=== PATIENT | female | born 1960 | race Caucasian/White ===

== ENCOUNTER 2016-05-28 09:55 | Emergency (ER) | payer MEDICARE, MEDICAID ==
[~2016-05-28] VITALS: Ht 144.8 cm; Wt 44.5 kg
[~2016-05-28 09:55] MED LIST: ALBU0.086 NEB; ALBU1AER INH; DILA100C PO; IBUP-232 PO
[2016-05-28 09:56] VITALS: BP 185/92; PULSE 95; RESP 15; TEMP 97.8; O2SAT 98
[2016-05-28] MEDS ORDERED: AUGM875T PO (10:23)
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
[2016-07-14] MEDS ORDERED: ALBUAER3 INH (16:53)
[2016-07-14] MEDS ORDERED: IBUP-232 PO (16:54)
[2016-08-10] MEDS ORDERED: [UNRECOGNIZED DRUG - CODE] (10:30)
[2016-09-15] MEDS ORDERED: IBUP-232 PO (22:44)
[2016-10-17] MEDS ORDERED: DILA100C PO (10:21)
[2016-10-17] MEDS ORDERED: CURIMIS (10:21)
[2016-10-17] MEDS ORDERED: [UNRECOGNIZED DRUG - REMARK] (10:24)
== END 2016-05-28 11:53 | disposition home or self-care (01) ==
LOC: NEPB 09:55
DX: S61.451A Open bite of right hand, initial encounter (principal); W54.0XXA Bitten by dog, initial encounter; R22.0 Localized swelling, mass and lump, head; E78.00 Pure hypercholesterolemia, unspecified; F17.210 Nicotine dependence, cigarettes, uncomplicated; F12.10 Cannabis abuse, uncomplicated
CPT/HCPCS: 99283

== ENCOUNTER 2016-06-24 14:39 | Emergency (ER) | payer MEDICARE, MEDICAID ==
[~2016-06-24] VITALS: Ht 144.8 cm; Wt 44.5 kg
[~2016-06-24 14:39] MED LIST changes: +AUGM875T PO
[2016-06-24 14:42] VITALS: BP 140/66; PULSE 91; RESP 15; TEMP 98.8; O2SAT 92
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
[2016-07-14] MEDS ORDERED: ALBUAER3 INH (16:53)
[2016-07-14] MEDS ORDERED: IBUP-232 PO (16:54)
[2016-08-10] MEDS ORDERED: [UNRECOGNIZED DRUG - CODE] (10:30)
[2016-09-15] MEDS ORDERED: IBUP-232 PO (22:44)
[2016-10-17] MEDS ORDERED: CURIMIS (10:21)
[2016-10-17] MEDS ORDERED: DILA100C PO (10:21)
[2016-10-17] MEDS ORDERED: [UNRECOGNIZED DRUG - REMARK] (10:24)
== END 2016-06-24 17:04 | disposition home or self-care (01) ==
LOC: NEPB 14:39
DX: S80.811A Abrasion, right lower leg, initial encounter (principal); E78.00 Pure hypercholesterolemia, unspecified; F17.200 Nicotine dependence, unspecified, uncomplicated; Z86.2 Personal history of diseases of the blood and blood-forming organs and certain disorders involving the immune mechanism; Z87.09 Personal history of other diseases of the respiratory system; Z86.69 Personal history of other diseases of the nervous system and sense organs; Z87.42 Personal history of other diseases of the female genital tract; V19.3XXA Pedal cyclist (driver) (passenger) injured in unspecified nontraffic accident, initial encounter; Y93.55 Activity, bike riding
CPT/HCPCS: 99282

== ENCOUNTER 2016-07-26 11:06 | Emergency (ER) | payer MEDICARE, MEDICAID ==
[~2016-07-26 11:06] MED LIST changes: -ALBU1AER INH; +ALBUAER3 INH
[2016-07-26 11:12] VITALS: BP 170/104; PULSE 67; RESP 18; TEMP 98.5; O2SAT 95
[2016-07-26 11:15] VITALS: RESP 18; O2SAT 96
[2016-07-26 11:46] LABS: AUTOMATED NEUTROPHIL # 3.7 TH/MM3 (1.8-7.7); BASOPHIL # 0.1 TH/MM3 (0-0.2); EOSINOPHIL % 0.1 % (0.0-4.0); HEMATOCRIT 41.9 % (35.0-46.0); HEMO FLAGS DIFF FINAL; LYMPH % 22.9 % (9.0-44.0); LYMPHOCYTE # 1.3 TH/MM3 (1.0-4.8); MEAN CELL VOLUME 94.6 FL (80.0-100.0); MEAN CORPUSCULAR HEMOGLOBIN 32.4 PG (27.0-34.0); MEAN CORPUSCULAR HGB CONC 34.2 % (32.0-36.0); MONO % 8.8 % (0.0-8.0); NEUT % 67.2 % (16.0-70.0); PLATELET COUNT 159 TH/MM3 (150-450); RED BLOOD COUNT 4.43 MIL/MM3 (4.00-5.30); RED CELL DISTRIBUTION WIDTH 13.1 % (11.6-17.2); WHITE BLOOD COUNT 5.5 TH/MM3 (4.0-11.0)
[2016-07-26 11:49] VITALS: BP 162/111; PULSE 78; RESP 18; O2SAT 96
--- NOTE | 2016-07-26 11:58 | RADRPT ---
EXAM DATE/TIME: 07/26/2016 11:30 [facility] COMPARISON: CT BRAIN W/O CONTRAST, January 15, 2016, 11:34. INDICATIONS : Seizure hit head on concrete today. RADIATION DOSE: 32.65 CTDIvol (mGy) MEDICAL HISTORY : Hypertension. Seizures. SURGICAL HISTORY : Appendectomy. Hysterectomy. ENCOUNTER: Initial ACUITY: 1 day PAIN SCALE: 6/10 LOCATION: cranial TECHNIQUE: Multiple contiguous axial images were obtained of the head. Using automated exposure control and adj ustment of the mA and/or kV according to patient size, radiation dose was kept as low as reasonably a chievable to obtain optimal diagnostic quality images. FINDINGS: CEREBRUM: The ventricles are normal for age. No evidence of midline shift, mass lesion, hemorrhage or acute in farction. No extra-axial fluid collections are seen. POSTERIOR FOSSA: The cerebellum and brainstem are intact. The 4th ventricle is midline. The cerebellopontine angle i s unremarkable. There continues to be some expansion of the extra-axial spaces in the posterior fossa around the cerebellum. EXTRACRANIAL: The visualized portion of the orbits is intact. There is soft tissue injury over the left parietal sc alp. SKULL: The calvaria is intact. No evidence of skull fracture. CONCLUSION: 1. No acute intracranial abnormalities seen. 2. Persistent expansion of the extra axial spaces in the posterior fossa which could suggest some cer ebellar atrophy. 3. Left parietal scalp injury. Rolf Tijerina MD on July 26, 2016 at 11:54 Board Certified Radiologist. This report was verified electronically.
[2016-07-26 12:01] LABS: APTT (PATIENT) 26.2 SEC (24.3-30.1); INTERNATIONAL NORMALIZED RATIO 0.9 RATIO; PROTHROMBIN TIME - PATIENT 9.9 SEC (9.8-11.6)
[2016-07-26 12:12] LABS: ALT (GPT) 29 U/L (10-53); ANION GAP 6 MEQ/L (5-15); AST (GOT) 15 U/L (15-37); BICARBONATE 31.1 MEQ/L (21.0-32.0); BLOOD UREA NITROGEN 18 MG/DL (7-18); CHLORIDE 104 MEQ/L (98-107); GLOMERULAR FILTRATION RATE 91 ML/MIN (>89); POTASSIUM 4.6 MEQ/L (3.5-5.1); SODIUM (NA) 141 MEQ/L (136-145)
[2016-07-26 12:15] LABS: ALKALINE PHOSPHATASE 112 U/L (45-117); TOTAL BILIRUBIN ADULT 0.3 MG/DL (0.2-1.0)
--- NOTE | 2016-07-26 12:44 | PD ---
HPI Chief Complaint: Seizure Time Seen by Provider: 11:10 Travel History International Travel<30 days: No Contact w/Intl Traveler<30days: No Traveled to known affect area: No History of Present Illness HPI 56-year-old female in by EMS after a seizure episode. Patient has history of seizure and on Dilantin. Patient a that she has been taking Dilantin as directed. Patient denies any recent injury. Patient denies any headache. Patient denies any chest pain or shortness of breath. Patient has history of chronic back pain is not new. Patient denies any focal weakness or numbness of the extremity. Patient complained of the lump in the back the head with pain. Patient fell backward hit her head during seizure episode this morning. PFSH Past Medical History Hx Anticoagulant Therapy: No Blood Disorders: Yes ([facility] [place]. AGE 20) Cardiovascular Problems: No High Cholesterol: Yes Chemotherapy: No Cerebrovascular Accident: No Diabetes: No Respiratory: Yes (tracheostomy) Seizures: Yes ?: Unknown Ovarian Cysts: Yes (RIGHT OVARY) Past Surgical History Appendectomy: Yes (AGE 7) Hysterectomy: Yes Other Surgery: Yes (TRACH AGE 20, RT BREAST AGE 29.VULVA DISPLASIA 05/10/07) Social History Alcohol Use: Yes (OCCASIONALLY) Tobacco Use: Yes (1 PPD) Substance Use: Yes (MARIJUANA) Allergies-Medications (Allergen,Severity, Reaction): Coded Allergies: Cat Dander (Verified Allergy, Mild, 06/24/16) Dog Dander (Verified Allergy, Mild, 06/24/16) Dust (Verified Allergy, Mild, 06/24/16) Brandon Grass (Verified Allergy, Mild, 06/24/16) Molds and Smuts (Verified Allergy, Mild, 06/24/16) Uncoded Allergies: paper tape (Allergy, Mild, Rash, 02/20/14) Reported Meds & Prescriptions Reported Meds & Active Scripts Active Ibuprofen 600 Mg Tab 600 Mg PO Q8HR PRN Proair Hfa 8.5 GM Inh (Albuterol Sulfate) 90 Mcg/Act Aer 2 Puff INH Q4-6H PRN 108 mcg/actuation Augmentin (Amoxicillin-Clavulanate) 875-125 mg Tab 875 Mg PO BID 10 Days not for use in CrCl <30 ml/min. Dilantin (Phenytoin Extended) 100 Mg Cap 100 Mg PO HS Dilantin (Phenytoin Extended) 100 Mg Cap 100 Mg PO DAILY@0600 Proventil Ud 0.083% (2.5 Mg/3 Ml) (Albuterol Sulfate) 2.5 Mg/3 Ml Inha 2.5 Mg NEB Q4HR NEB Review of Systems General / Constitutional: No: Fever Eyes: No: Visual changes HENT: No: Headaches Cardiovascular: No: Chest Pain or Discomfort Respiratory: No: Shortness of Breath Gastrointestinal: No: Abdominal Pain Genitourinary: No: Dysuria Musculoskeletal: No: Pain Skin: No Rash Neurologic: No: Weakness Psychiatric: No: Depression Endocrine: No: Polydipsia Hematologic/Lymphatic: No: Easy Bruising Physical Exam Narrative GENERAL: Well-nourished, well-developed patient. SKIN: Warm and dry. HEAD: Normocephalic. Patient has small soft tissue swelling tenderness occipital area of the scalp. EYES: No scleral icterus. No injection or drainage. NECK: Supple, trachea midline. No JVD or lymphadenopathy. CARDIOVASCULAR: Regular rate and rhythm without murmurs, gallops, or rubs. RESPIRATORY: Breath sounds equal bilaterally. No accessory muscle use. GASTROINTESTINAL: Abdomen soft, non-tender, nondistended. MUSCULOSKELETAL: No cyanosis, or edema. BACK: Nontender without obvious deformity. No CVA tenderness. Neurologic exam: Patient is awake alert oriented 3. No obvious focal neurological deficit. Data Data Last Documented VS Vital Signs Date Time Temp Pulse Resp B/P Pulse Ox O2 Delivery O2 Flow Rate FiO2 07/26/16 11:49 78 18 162/111 96 Room Air 07/26/16 11:12 98.5 Orders Complete Blood Count With Diff (07/26/16 11:10) Comprehensive Metabolic Panel (07/26/16 11:10) Prothrombin Time / Inr (Pt) (07/26/16 11:10) Act Partial Throm Time (Ptt) (07/26/16 11:10) Phenytoin (Dilantin) (07/26/16 11:10) Iv Access Insert/Monitor (07/26/16 11:10) Ecg Monitoring (07/26/16 11:10) Oximetry (07/26/16 11:10) Ct Brain W/O Iv Contrast(Rout) (07/26/16 11:12) Labs Laboratory Tests Test 07/26/16 11:23 White Blood Count 5.5 TH/MM3 Red Blood Count 4.43 MIL/MM3 Hemoglobin 14.4 GM/DL Hematocrit 41.9 % Mean Corpuscular Volume 94.6 FL Mean Corpuscular Hemoglobin 32.4 PG Mean Corpuscular Hemoglobin 34.2 % Concent Red Cell Distribution Width 13.1 % Platelet Count 159 TH/MM3 Mean Platelet Volume 8.8 FL Neutrophils (%) (Auto) 67.2 % Lymphocytes (%) (Auto) 22.9 % Monocytes (%) (Auto) 8.8 % Eosinophils (%) (Auto) 0.1 % Basophils (%) (Auto) 1.0 % Neutrophils # (Auto) 3.7 TH/MM3 Lymphocytes # (Auto) 1.3 TH/MM3 Monocytes # (Auto) 0.5 TH/MM3 Eosinophils # (Auto) 0.0 TH/MM3 Basophils # (Auto) 0.1 TH/MM3 CBC Comment DIFF FINAL Differential Comment Prothrombin Time 9.9 SEC Prothromb Time International 0.9 RATIO Ratio Activated Partial 26.2 SEC Thromboplast Time Sodium Level 141 MEQ/L Potassium Level 4.6 MEQ/L Chloride Level 104 MEQ/L Carbon Dioxide Level 31.1 MEQ/L Anion Gap 6 MEQ/L Blood Urea Nitrogen 18 MG/DL Creatinine 0.67 MG/DL Estimat Glomerular Filtration 91 ML/MIN Rate Random Glucose 82 MG/DL Calcium Level 8.6 MG/DL Total Bilirubin 0.3 MG/DL Aspartate Amino Transf 15 U/L (AST/SGOT) Alanine Aminotransferase 29 U/L (ALT/SGPT) Alkaline Phosphatase 112 U/L Total Protein 7.5 GM/DL Albumin 3.5 GM/DL Phenytoin (Dilantin) Level 0.8 MCG/ML [facility] Medical Decision Making Medical Screen Exam Complete: Yes Emergency Medical Condition: Yes Interpretation(s) 12:[address] scan of the brain showed chronic changes. No acute intracranial process. Scalp soft tissue swelling. Dilantin 0.8. Differential Diagnosis Differential diagnosis including breakthrough seizure, subtherapeutic level of medication, electrolyte abnormality. Narrative Course 56-year-old female with seizure. History of seizure disorder. On Dilantin. Dilantin level subtherapeutic. Fosphenytoin 1 g IV given now. Diagnosis Primary Impression: Seizure disorder Additional Impression: Closed head injury Qualified Code: S09.90XA - Closed head injury, initial encounter Patient Instructions: General Instructions Additional Instructions: Advised patient to continue with Dilantin. Advised patient to follow with personal physician for level check and Dilantin adjustment. Head trauma instructions given. Med/Other Pt SpecificInfo: No Change to Meds Disposition: 01 DISCHARGE HOME Condition: Stable Anthony Freeman MD Jul 26, 2016 12:43
[2016-07-26] MEDS ORDERED: FOSPHENYTOIN INJ 1,000 MGPE in SODIUM CHLORIDE 0.9% INJ 50 ML IV ONE (12:45)
[2016-07-26 14:16] VITALS: BP 146/78; TEMP 98.1
[2016-07-27] MEDS ORDERED: DILA100C PO (15:14)
[2016-07-27] MEDS ORDERED: [UNRECOGNIZED DRUG - CODE] (15:53)
[2016-08-10] MEDS ORDERED: [UNRECOGNIZED DRUG - CODE] (10:30)
[2016-09-15] MEDS ORDERED: IBUP-232 PO (22:44)
[2016-10-17] MEDS ORDERED: DILA100C PO (10:21)
[2016-10-17] MEDS ORDERED: CURIMIS (10:21)
[2016-10-17] MEDS ORDERED: [UNRECOGNIZED DRUG - REMARK] (10:24)
== END 2016-07-26 14:00 | disposition home or self-care (01) ==
LOC: NEPA 11:06
DX: G40.909 Epilepsy, unspecified, not intractable, without status epilepticus (principal); S09.90XA Unspecified injury of head, initial encounter; W18.39XA Other fall on same level, initial encounter; G89.29 Other chronic pain; M54.9 Dorsalgia, unspecified; E78.00 Pure hypercholesterolemia, unspecified; F17.210 Nicotine dependence, cigarettes, uncomplicated
CPT/HCPCS: 70450; 80053; 80185; 85025; 85610; 85730; 99284; Q2009

== ENCOUNTER 2016-07-26 14:40 | Observation (INO) | payer MEDICARE, MEDICAID, OTHER ==
[~2016-07-26] VITALS: Ht 160 cm; Wt 65.0 kg
[2016-07-26 14:43] VITALS: BP 168/74; PULSE 94; RESP 20; TEMP 97.7; O2SAT 95
[2016-07-26 16:23] VITALS: BP 173/81; PULSE 78; RESP 24; O2SAT 98
[2016-07-26 16:30] VITALS: BP_SYST 131; BP_SYST 141; BP_SYST 155; BP_DIAS 78; BP_DIAS 86; BP_DIAS 93; RESP 24
[2016-07-26 16:58] LABS: BICARBONATE 31.8 MEQ/L (21.0-32.0); POTASSIUM 4.2 MEQ/L (3.5-5.1)
[2016-07-26 17:40] VITALS: BP 128/71; PULSE 79; RESP 16; O2SAT 100
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
--- NOTE | 2016-07-26 18:41 | PD ---
Physical Exam Narrative Received sign out from previous team to consult neuro and reevaluate. 56yo F with PMH of seizure on dilantin 100mg BID and s/p trach 37 years ago presents to the ED with dizziness. Pt was initially seen this morning with c/o seizure and had dilantin level of 0.8 at the time. Pt was given 1gm of fosphenytoin and discharged. Repeat dilantin level on her second ED visit is 30.6. Discussed with neurologist Dr. Lopez and he recommended to hold her dilantin and repeat dilantin level tomorrow. Stated that pt can be observed overnight and if dilantin level is normal tomorrow, can follow up as outpatient. Discussed with resident physician and admitted to Dr. Hammonds. Data Data Last Documented VS Vital Signs Date Time Temp Pulse Resp B/P Pulse Ox O2 Delivery O2 Flow Rate FiO2 07/26/16 17:40 79 16 128/71 100 Room Air 07/26/16 14:43 97.7 Orders Basic Metabolic Panel (Bmp) (07/26/16 16:07) Phenytoin (Dilantin) (07/26/16 16:07) Iv Access Insert/Monitor (07/26/16 16:07) Ecg Monitoring (07/26/16 16:07) Oximetry (07/26/16 16:07) Orthostatic Vital Signs (07/26/16 16:08) Labs Laboratory Tests Test 07/26/16 16:19 Sodium Level 139 MEQ/L Potassium Level 4.2 MEQ/L Chloride Level 101 MEQ/L Carbon Dioxide Level 31.8 MEQ/L Anion Gap 6 MEQ/L Blood Urea Nitrogen 15 MG/DL Creatinine 0.71 MG/DL Estimat Glomerular Filtration 85 ML/MIN Rate Random Glucose 84 MG/DL Calcium Level 8.7 MG/DL Phenytoin (Dilantin) Level 30.6 MCG/ML [facility] Supervised Visit with BRANDO: No Diagnosis Primary Impression: Dilantin toxicity Qualified Code: T42.0X1A - Dilantin toxicity, accidental or unintentional, initial encounter Admitting Information Admitting Physician Requests: Observation Vilma Kirkpatrick DO Jul 26, 2016 18:41
[2016-07-26] MEDS ORDERED: ONDANSETRON HCL 4 MG/2 ML VIAL IV PRN (19:00)
[2016-07-26] MEDS ORDERED: SODIUM CHLORIDE 0.9% FLUSH 5 ML FLUSH FLUSH PRN (19:00)
[2016-07-26] MEDS ORDERED: NALOXONE HCL 0.4 MG/ML AMP IV PRN (19:00)
[2016-07-26] MEDS ORDERED: RESP: ALBUTEROL 2.5 MG/3 ML NEB (PRN) NEB (19:30)
[2016-07-26] MEDS ORDERED: LORazepam 2 MG/ML VIAL IV PUSH PRN (19:30)
[2016-07-26] MEDS ORDERED: ACETAMINOPHEN 325 MG TAB PO PRN (19:45)
[2016-07-26 20:41] VITALS: BP 104/76; PULSE 80; RESP 18; TEMP 98.4; O2SAT 97
[2016-07-26] MEDS: SODIUM CHLORIDE 0.9% FLUSH 5 ML FLUSH FLUSH SCH (21:00)
[2016-07-26 22:10] VITALS: O2SAT 95
[2016-07-27 04:28] VITALS: BP 106/74; PULSE 80; RESP 18; TEMP 97.9; O2SAT 98
[2016-07-27 06:26] LABS: ALT (GPT) 24 U/L (10-53); ANION GAP 8 MEQ/L (5-15); AST (GOT) 13 U/L (15-37); BICARBONATE 27.3 MEQ/L (21.0-32.0); BLOOD UREA NITROGEN 17 MG/DL (7-18); CHLORIDE 105 MEQ/L (98-107); GLOMERULAR FILTRATION RATE 82 ML/MIN (>89); POTASSIUM 4.2 MEQ/L (3.5-5.1); SODIUM (NA) 140 MEQ/L (136-145)
[2016-07-27 06:29] LABS: ALKALINE PHOSPHATASE 92 U/L (45-117); TOTAL BILIRUBIN ADULT 0.2 MG/DL (0.2-1.0)
[2016-07-27 07:28] VITALS: BP 195/99; PULSE 73; RESP 20; TEMP 96.2; O2SAT 93
[2016-07-27 08:04] VITALS: BP 138/86
[2016-07-27 09:24] VITALS: O2SAT 98
[2016-07-27] MEDS: SODIUM CHLORIDE 0.9% FLUSH 5 ML FLUSH FLUSH SCH (10:59)
--- NOTE | 2016-07-27 11:16 | HHI.FPPN ---
Subjective Remarks Pt. seen, examined and discussed with the medicine team. This is a 56 yo female who has seizure disorder on Dilantin. She Has a trach from history of [place] Encephalitis >30 years ago which she reports was from a mosquito bite. She has had a trach since that time and has managed very well, doing her own trach care. She was seen in ED 2 days ago, and was apparently given dilantin because her level was low, but subsequently pt. was unable to ambulate and reported seizure activity and striking her head which was not witnessed prior to returning to the ED. She experienced some dizziness , and was found to have a significantly elevated dilantin level. This a.m. she feels back to her baseline and would like to be discharged. Requests a trach kit so she can change out her current trach which she has had for 4 years. However, this is apparently functioning well. She lives with a friend who has transportation and will pick her up. Her primary care doctor is Dr. Xiomy Souza. See H&P for this admission for additional historical details, including past, family and social history, and ROS. Objective Vitals Vital Signs Date Time Temp Pulse Resp B/P Pulse Ox O2 Delivery O2 Flow Rate FiO2 07/27/16 08:04 138/86 07/27/16 07:28 96.2 73 20 195/99 93 07/27/16 04:28 97.9 80 18 106/74 98 07/26/16 22:10 95 21 07/26/16 20:41 98.4 80 18 104/76 97 07/26/16 17:40 79 16 128/71 100 Room Air 07/26/16 16:30 80 24 141/93 84 24 155/86 80 131/78 07/26/16 16:23 78 24 173/81 98 Room Air 07/26/16 14:43 97.7 94 20 168/74 95 Result Diagram: 07/27/16 0501 Other Results Laboratory Tests Test 07/26/16 07/27/16 16:19 05:01 Sodium Level 139 MEQ/L 140 MEQ/L Potassium Level 4.2 MEQ/L 4.2 MEQ/L Chloride Level 101 MEQ/L 105 MEQ/L Carbon Dioxide Level 31.8 MEQ/L 27.3 MEQ/L Anion Gap 6 MEQ/L 8 MEQ/L Blood Urea Nitrogen 15 MG/DL 17 MG/DL Creatinine 0.71 MG/DL 0.73 MG/DL Estimat Glomerular Filtration 85 ML/MIN 82 ML/MIN Rate Random Glucose 84 MG/DL 82 MG/DL Calcium Level 8.7 MG/DL 8.3 MG/DL Phenytoin (Dilantin) Level 30.6 MCG/ML 20.4 MCG/ML Total Bilirubin 0.2 MG/DL Aspartate Amino Transf 13 U/L (AST/SGOT) Alanine Aminotransferase 24 U/L (ALT/SGPT) Alkaline Phosphatase 92 U/L Total Protein 6.3 GM/DL Albumin 3.1 GM/DL Objective Remarks O. CONSTITUTIONAL/GEN: normally nourished, in NAD. EYES: conjunctiva normal, PERRLA, EOMI. NECK: Trach tube in place, functioning well. LUNGS: clear A-P, respiratory effort is normal. CARDIOVASCULAR: RR without murmur or gallop. No significant edema. GI/ABD: soft without masses, without organomegaly. NEURO: No focal deficits. SKIN: very frias, evidence of sun damage, no rashes noted. HEME/LYMPH: no bruising, petechia or significant adenopathy MUSC: back is normal in appearance. PSYCH/MENTAL STATUS: Alert and oriented x 3. 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 Attending Attestation Patient seen and examined. Case reviewed and discussed with the resident team. Agree with plan of care as discussed with me and documented in the resident note. Problem List: (1) Dilantin toxicity Status: Acute Plan: - Dilantin level 30.6 on admission - Dr. Kirkpatrick, ED physician, has discussed the case with Dr. Lopez, neurologist who has recommended to hold Dilantin and to repeat a Dilantin level tomorrow - Admit to observation - If Dilantin level normalizes tomorrow, patient may be stable for discharge with follow up - Neuro exam unremarkable at this time - Consult neurology, appreciate recommendations (2) Seizure disorder Status: Acute Plan: - Hold home Dilantin - Ativan 4 mg IV q15m prn seizures > 2 minutes (3) Head injury Status: Acute Plan: - Patient reported she fell on her head during her seizure episode and continues to have pain in her occipital region - Head CT showing no acute intracranial abnormalities; persistent expansion of the extra axial spaces in the posterior fossa which could suggest some cerebellar atrophy - forger helper intact and rest of neuro exam unremarkable - Pain control with Tylenol q4h prn (4) Nutrition, metabolism, and development symptoms Status: Acute Plan: Fluids: per PO Electrolytes: within normal limits Nutrition: regular diet DVT PPX: b/l SCDs, consider chemical anticoagulation if anticipating a longer hospital stay Problem Qualifiers (1) Dilantin toxicity: Qualified Code: T42.0X1A - Dilantin toxicity, accidental or unintentional, initial encounter Linda Hammonds MD Jul 27, 2016 11:16
[2016-07-27 11:26] VITALS: BP 125/72; PULSE 72; RESP 18; TEMP 96.2; O2SAT 95
--- NOTE | 2016-07-27 13:30 | MB ---
cc: LAUREL العليREY DATE OF CONSULTATION: 07/27/2016 REASON FOR CONSULTATION Dilantin toxicity. HISTORY OF PRESENT ILLNESS The patient is a 56-year-old female who yesterday came to the emergency room with history of a seizure. Apparently friends saw her falling to the ground and having seizure activity. She came to the ER and the Dilantin level was 0.8. She was loaded with Dilantin and was discharged but felt very dizzy afterwards and came back and the Dilantin level was 30.6. She was admitted and she is doing well. This morning she is feeling much better. PAST MEDICAL HISTORY She has a history of a seizure disorder, history of [place] encephalitis at age of 19. She had a tracheostomy for 37 years. She says previous to this her last seizure was several months ago. She takes Dilantin 100 mg twice a day. SOCIAL HISTORY She is staying with friends. She is a smoker and does not drink alcohol. NEUROLOGICAL EXAMINATION The neurological exam shows a frail woman but she is alert pleasant, oriented. She has a trach and closes it in order to verbalize. Her speech is actually quite good. Ocular movements and visual gill full. She has good strength with the upper and lower extremities on the bedside exam. Reflexes are present throughout, plantar responses flexor. LABORATORY DATA I looked at the data. Repeat Dilantin level this morning was 20.4. Chemistry with normal sodium, potassium, BUN and creatinine. Blood sugar normal. Calcium 8.7 yesterday and 8.3 today. ASSESSMENT Seizure recurrence yesterday, loaded with Dilantin as the level was essentially unobtainable. She swears she takes Dilantin 100 mg twice a day and apparently follows with a primary care doctor and checks her Dilantin level often. The level yesterday therefore is of a questionable significance but she apparently had a seizure yesterday, was loaded with Dilantin and became toxic later on. This is not unusual to have a Dilantin level this high after loading and she is a small framed woman. As discussed with the RN earlier today, I think we can restart her Dilantin 100 mg twice a day and she can be discharged home as she is back to baseline. She could follow with me as I offered her to do so, but she apparently already follows with a regular doctor for this and should have a Dilantin level in a couple of weeks. If there are additional seizures in the meantime then we will consider follow-up imaging studies. The patient did have a CT brain yesterday after coming to the office initially with the seizure and the study showed no intracranial abnormalities but left scalp injury. Thank you for asking us to assist in her care. Joesph Johnson MD OFC/BT /12:57 PM /1:10 PM
[2016-07-27] MEDS ORDERED: DILA100C PO (15:14)
--- NOTE | 2016-07-27 15:15 | HHI.DCPOC ---
Discharge Care Plan Diagnosis: (1) Dilantin toxicity (2) Seizure disorder Goals to Promote Your Health * To prevent worsening of your condition and complications * To maintain your health at the optimal level Directions to Meet Your Goals Take your medications as prescribed Follow your dietary instruction Follow activity as directed Keep your appointments as scheduled Take your immunizations and boosters as scheduled If your symptoms worsen call your PCP, if no PCP go to Urgent Care Center or Emergency Room Smoking is Dangerous to Your Health. Avoid second hand smoke Call the 24-hour hour crisis hotline for domestic abuse at Geovanny Samuels MD R1 Jul 27, 2016 15:15
[2016-07-27 15:29] VITALS: BP 142/74; PULSE 95; RESP 19; TEMP 95.8; O2SAT 94
[2016-07-27] MEDS ORDERED: [UNRECOGNIZED DRUG - CODE] (15:53)
[2016-08-10] MEDS ORDERED: [UNRECOGNIZED DRUG - CODE] (10:30)
[2016-09-15] MEDS ORDERED: IBUP-232 PO (22:44)
[2016-10-17] MEDS ORDERED: CURIMIS (10:21)
[2016-10-17] MEDS ORDERED: DILA100C PO (10:21)
[2016-10-17] MEDS ORDERED: [UNRECOGNIZED DRUG - REMARK] (10:24)
== END 2016-07-27 18:22 | disposition home or self-care (01) ==
LOC: NEPA 14:40 → NEDA 18:38 → NEPGCP 20:31
PROVIDERS: ADMIT Family Medicine; ATTEND Family Medicine
DX: T42.0X5A Adverse effect of hydantoin derivatives, initial encounter (principal); R42 Dizziness and giddiness; S09.90XA Unspecified injury of head, initial encounter; G40.409 Other generalized epilepsy and epileptic syndromes, not intractable, without status epilepticus; E78.5 Hyperlipidemia, unspecified; Z91.048 Other nonmedicinal substance allergy status; G89.29 Other chronic pain; M54.9 Dorsalgia, unspecified; F17.210 Nicotine dependence, cigarettes, uncomplicated; W18.39XA Other fall on same level, initial encounter
CPT/HCPCS: 70450; 80053; 80185; 85025; 85610; 85730; 97163; 99284; G0378; G8987; G8988; Q2009; 80048

== ENCOUNTER → 2016-08-10 | Outpatient (CLI) | payer MEDICARE, OTHER ==
[~2016-08-10] MED LIST changes: -ALBU0.086 NEB; -AUGM875T PO; +BENZ100 PO; +CURIMIS; +GUAI200T4 PO; +PRED20 PO; +ZITH250T PO; +[UNRECOGNIZED DRUG - CODE]; +[UNRECOGNIZED DRUG - REMARK]
== END ==
LOC: CLAB 10:55
PROVIDERS: ATTEND Family Medicine
DX: G40.909 Epilepsy, unspecified, not intractable, without status epilepticus (principal)
CPT/HCPCS: 36415; 80186

== ENCOUNTER → 2016-10-17 | Outpatient (CLI) | payer MEDICARE, OTHER | LOC: CLAB 10:44 | PROVIDERS: ATTEND Family Medicine | DX: G40.909 Epilepsy, unspecified, not intractable, without status epilepticus (principal) | CPT/HCPCS: 36415; 80185 ==

== ENCOUNTER 2016-11-07 09:24 | Emergency (ER) | payer MEDICAID, MEDICARE, OTHER ==
[~2016-11-07] VITALS: Ht 144.8 cm; Wt 42.0 kg
[~2016-11-07 09:24] MED LIST changes: -BENZ100 PO; -CURIMIS; -GUAI200T4 PO; -PRED20 PO; -ZITH250T PO; -[UNRECOGNIZED DRUG - CODE]
[2016-11-07 09:32] VITALS: BP 137/67; PULSE 96; RESP 16; TEMP 99.6; O2SAT 100
[2016-11-07 09:36] VITALS: BP 137/67; PULSE 92; RESP 16; O2SAT 100
[2016-11-07] MEDS ORDERED: methylPREDNISolone SOD SUCC 125 MG/2 ML VIAL IVP ONE (10:15)
[2016-11-07] MEDS ORDERED: SODIUM CHLORIDE 0.9% FLUSH 10 ML FLUSH IVF PRN (10:15)
[2016-11-07] MEDS ORDERED: SODIUM CHLOR 0.9% 1000 ML INJ 1,000 ML IV ONE (10:15)
--- NOTE | 2016-11-07 10:52 | RADRPT ---
EXAM DATE/TIME: 11/07/2016 10:36 [facility] COMPARISON: No previous studies available for comparison. INDICATIONS : Cough. MEDICAL HISTORY : Chronic obstructive pulmonary disease. Hypercholesterolemia. SURGICAL HISTORY : Tracheostomy ENCOUNTER: Initial ACUITY: 2 days PAIN SCORE: 0/10 LOCATION: Bilateral chest FINDINGS: There is a tracheostomy tube in place. No significant focal pleural or parenchymal opacities are note d. Cardiomediastinal contours are within normal limits. Bony thorax is intact. CONCLUSION: 1. No acute cardiopulmonary disease. Cristhian White MD on November 07, 2016 at 10:49 Board Certified Radiologist. This report was verified electronically.
[2016-11-07] MEDS: RESP: ALBUTEROL 2.5 MG/IPRATROPIUM 0.5 MG NEB (SCH) INH ×2 (10:56→10:57)
[2016-11-07 10:59] LABS: AUTOMATED NEUTROPHIL # 5.4 TH/MM3 (1.8-7.7); BASOPHIL % 0.5 % (0.0-2.0); HEMATOCRIT 38.7 % (35.0-46.0); HEMO FLAGS DIFF FINAL; LYMPHOCYTE # 0.7 TH/MM3 (1.0-4.8); MEAN CELL VOLUME 89.9 FL (80.0-100.0); MEAN CORPUSCULAR HEMOGLOBIN 31.9 PG (27.0-34.0); MEAN CORPUSCULAR HGB CONC 35.5 % (32.0-36.0); MONO % 8.2 % (0.0-8.0); NEUT % 80.3 % (16.0-70.0); PLATELET COUNT 123 TH/MM3 (150-450); RED BLOOD COUNT 4.31 MIL/MM3 (4.00-5.30); RED CELL DISTRIBUTION WIDTH 13.4 % (11.6-17.2); WHITE BLOOD COUNT 6.7 TH/MM3 (4.0-11.0)
[2016-11-07 11:15] LABS: BICARBONATE 27.6 MEQ/L (21.0-32.0); POTASSIUM 3.4 MEQ/L (3.5-5.1)
[2016-11-07] MEDS ORDERED: AZITHROMYCIN 250 MG TAB PO ONE (11:15)
[2016-11-07 11:50] VITALS: BP 177/87; PULSE 92; RESP 16; O2SAT 96
[2016-11-07] MEDS ORDERED: PRED20 PO (12:12)
[2016-11-07] MEDS ORDERED: ALBUAER3 INH (12:12)
[2016-11-07] MEDS ORDERED: POTASSIUM CHLORIDE 10 MEQ CONTROLLED RELEASE TAB PO ONE (12:15)
--- NOTE | 2016-11-07 12:20 | PD ---
HPI Chief Complaint: General Weakness Time Seen by Provider: 09:55 Travel History International Travel<30 days: No Contact w/Intl Traveler<30days: No Traveled to known affect area: No History of Present Illness HPI Patient is a 56-year-old female who presents to emergency room with complaints of cough and congestion for the past few days. Patient reports that when she coughs, her cough has been productive. Patient denies any fevers or chills. Reports that she was seen at [facility] yesterday and had an xray of her chest which was negative for pneumonia. Reports that she was diagnosed with bronchitis and was sent home with a prescription for a Z-Todd and Tessalon Perles. Patient reports that she has not filled her scripts, reports that she is not feeling any better. Patient denies chest pain/sob at this time. No other c/o. Patient is a smoker. PFSH Past Medical History Hx Anticoagulant Therapy: No Asthma: Yes Blood Disorders: Yes ([facility]. AGE 20) Heart Rhythm Problems: No Cancer: No Cardiovascular Problems: Yes High Cholesterol: Yes Chemotherapy: No Chest Pain: No Congestive Heart Failure: No COPD: Yes Cerebrovascular Accident: No Diabetes: No Endocrine: No Genitourinary: No Immune Disorder: No Musculoskeletal: No Neurologic: Yes (seizures ) Psychiatric: No Reproductive: No Respiratory: Yes (COPD) Radiation Therapy: No Seizures: Yes Sleep Apnea: No Thyroid Disease: No Influenza Vaccination: No ?: Not Ovarian Cysts: Yes (RIGHT OVARY) Past Surgical History Appendectomy: Yes (AGE 7) Hysterectomy: Yes Other Surgery: Yes (TRACH AGE 20, RT BREAST AGE 29.VULVA DISPLASIA 05/10/07) Social History Alcohol Use: Yes (OCCASIONALLY) Tobacco Use: Yes (3/4 ppd) Substance Use: Yes (MARIJUANA) Allergies-Medications (Allergen,Severity, Reaction): Coded Allergies: Cat Dander (Verified Allergy, Mild, 11/07/16) Dog Dander (Verified Allergy, Mild, 11/07/16) Dust (Verified Allergy, Mild, 11/07/16) Brandon Grass (Verified Allergy, Mild, 11/07/16) Molds and Smuts (Verified Allergy, Mild, 11/07/16) Uncoded Allergies: paper tape (Allergy, Mild, Rash, 02/20/14) Reported Meds & Prescriptions Reported Meds & Active Scripts Active Proair Hfa 8.5 GM Inh (Albuterol Sulfate) 90 Mcg/Act Aer 2 Puff INH Q4-6H PRN 108 mcg/actuation Prednisone 20 Mg Tab 20 Mg PO BID 5 Days [tracheostomy care] Kit .XX CONTINUOUS Dilantin (Phenytoin Extended) 100 Mg Cap 100 Mg PO BID Ibuprofen 600 Mg Tab 600 Mg PO Q8HR PRN Proair Hfa 8.5 GM Inh (Albuterol Sulfate) 90 Mcg/Act Aer 2 Puff INH Q4-6H PRN 108 mcg/actuation Review of Systems General / Constitutional: No: Fever Eyes: No: Visual changes HENT: No: Headaches Cardiovascular: No: Chest Pain or Discomfort Respiratory: Positive: Cough, Shortness of Breath, Wheezing Gastrointestinal: No: Abdominal Pain Genitourinary: No: Dysuria Musculoskeletal: No: Pain Skin: No Rash Neurologic: No: Weakness Psychiatric: No: Depression Endocrine: No: Polydipsia Hematologic/Lymphatic: No: Easy Bruising Physical Exam Narrative GENERAL: Mild distress SKIN: Focused skin assessment warm/dry. HEAD: Atraumatic. Normocephalic. ENT: No nasal bleeding or discharge. Mucous membranes pink and moist. NECK: Trachea midline. No JVD. CARDIOVASCULAR: Regular rate and rhythm. No murmur appreciated. RESPIRATORY: No accessory muscle use. Patient with scattered wheezing throughout upper and lower lobes of the lungs. GASTROINTESTINAL: Abdomen soft, non-tender, nondistended. Hepatic and splenic margins not palpable. MUSCULOSKELETAL: No obvious deformities. No clubbing. No cyanosis. No edema. NEUROLOGICAL: Awake and alert. No obvious cranial nerve deficits. Motor grossly within normal limits. Normal speech. PSYCHIATRIC: Appropriate mood and affect; insight and judgment normal. Data Data Last Documented VS Vital Signs Date Time Temp Pulse Resp B/P Pulse Ox O2 Delivery O2 Flow Rate FiO2 11/07/16 11:50 92 16 177/87 96 Nasal Cannula 2 11/07/16 09:32 99.6 Orders Complete Blood Count With Diff (11/07/16 10:13) Basic Metabolic Panel (Bmp) (11/07/16 10:13) Iv Access Insert/Monitor (11/07/16 10:13) Ecg Monitoring (11/07/16 10:13) Oximetry (11/07/16 10:13) Chest, Pa & Lat (11/07/16 10:13) Sodium Chloride 0.9% Flush (Ns Flush) (11/07/16 10:15) Methylprednisolone So Succ Inj (Solumedr (11/07/16 10:15) Albuterol-Ipratropium Neb (Duoneb Neb) (11/07/16 10:15) Sodium Chlor 0.9% 1000 Ml Inj (Ns 1000 M (11/07/16 10:15) Phenytoin (Dilantin) (11/07/16 10:13) Azithromycin (Zithromax) (11/07/16 11:15) Potassium Chloride (Kcl) (11/07/16 12:15) Labs Laboratory Tests Test 11/07/16 10:47 White Blood Count 6.7 TH/MM3 Red Blood Count 4.31 MIL/MM3 Hemoglobin 13.7 GM/DL Hematocrit 38.7 % Mean Corpuscular Volume 89.9 FL Mean Corpuscular Hemoglobin 31.9 PG Mean Corpuscular Hemoglobin 35.5 % Concent Red Cell Distribution Width 13.4 % Platelet Count 123 TH/MM3 Mean Platelet Volume 8.6 FL Neutrophils (%) (Auto) 80.3 % Lymphocytes (%) (Auto) 11.0 % Monocytes (%) (Auto) 8.2 % Eosinophils (%) (Auto) 0.0 % Basophils (%) (Auto) 0.5 % Neutrophils # (Auto) 5.4 TH/MM3 Lymphocytes # (Auto) 0.7 TH/MM3 Monocytes # (Auto) 0.6 TH/MM3 Eosinophils # (Auto) 0.0 TH/MM3 Basophils # (Auto) 0.0 TH/MM3 CBC Comment DIFF FINAL Differential Comment Sodium Level 137 MEQ/L Potassium Level 3.4 MEQ/L Chloride Level 102 MEQ/L Carbon Dioxide Level 27.6 MEQ/L Anion Gap 7 MEQ/L Blood Urea Nitrogen 30 MG/DL Creatinine 1.08 MG/DL Estimat Glomerular Filtration 52 ML/MIN Rate Random Glucose 123 MG/DL Calcium Level 8.2 MG/DL Phenytoin (Dilantin) Level 13.6 MCG/ML MDM Medical Decision Making Medical Screen Exam Complete: Yes Emergency Medical Condition: Yes Interpretation(s) Vital Signs Date Time Temp Pulse Resp B/P Pulse Ox O2 Delivery O2 Flow Rate FiO2 11/07/16 11:50 92 16 177/87 96 Nasal Cannula 2 11/07/16 09:36 92 16 137/67 100 Nasal Cannula 2 11/07/16 09:32 99.6 96 16 137 100 Laboratory Tests Test 11/07/16 10:47 White Blood Count 6.7 TH/MM3 (4.0-11.0) Red Blood Count 4.31 MIL/MM3 (4.00-5.30) Hemoglobin 13.7 GM/DL (11.6-15.3) Hematocrit 38.7 % (35.0-46.0) Mean Corpuscular Volume 89.9 FL (80.0-100.0) Mean Corpuscular Hemoglobin 31.9 PG (27.0-34.0) Mean Corpuscular Hemoglobin 35.5 % Concent (32.0-36.0) Red Cell Distribution Width 13.4 % (11.6-17.2) Platelet Count 123 TH/MM3 (150-450) Mean Platelet Volume 8.6 FL (7.0-11.0) Neutrophils (%) (Auto) 80.3 % (16.0-70.0) Lymphocytes (%) (Auto) 11.0 % (9.0-44.0) Monocytes (%) (Auto) 8.2 % (0.0-8.0) Eosinophils (%) (Auto) 0.0 % (0.0-4.0) Basophils (%) (Auto) 0.5 % (0.0-2.0) Neutrophils # (Auto) 5.4 TH/MM3 (1.8-7.7) Lymphocytes # (Auto) 0.7 TH/MM3 (1.0-4.8) Monocytes # (Auto) 0.6 TH/MM3 (0-0.9) Eosinophils # (Auto) 0.0 TH/MM3 (0-0.4) Basophils # (Auto) 0.0 TH/MM3 (0-0.2) CBC Comment DIFF FINAL Differential Comment Sodium Level 137 MEQ/L (136-145) Potassium Level 3.4 MEQ/L (3.5-5.1) Chloride Level 102 MEQ/L (98-107) Carbon Dioxide Level 27.6 MEQ/L (21.0-32.0) Anion Gap 7 MEQ/L (5-15) Blood Urea Nitrogen 30 MG/DL (7-18) Creatinine 1.08 MG/DL (0.50-1.00) Estimat Glomerular Filtration 52 ML/MIN (>89) Rate Random Glucose 123 MG/DL (74-106) Calcium Level 8.2 MG/DL (8.5-10.1) Phenytoin (Dilantin) Level 13.6 MCG/ML (10.0-20.0) Last Impressions Chest X-Ray 11/07/16 1013 Signed Impressions: Service Date/Time: Monday, November 07, 2016 10:36 - CONCLUSION: 1. No acute cardiopulmonary disease. Cristhian White MD Differential Diagnosis acute bronchitis, pneumonia, copd exacerbation Narrative Course Patient is a 56-year-old female who presents to emergency room for re- evaluation of cough/congestion and wheezing. She was seen at an outside hospital last night and was discharged with a prescription for Z-Todd as well as Tessalon Perles. Patient reports that she has not filled her prescription, reports that she is not feeling any better Patient's vital signs are stable. Patient was placed on a continuous pulse ox upon arrival to emergency room. Steroids as well as neb treatment ordered. Vital Signs Date Time Temp Pulse Resp B/P Pulse Ox O2 Delivery O2 Flow Rate FiO2 11/07/16 11:50 92 16 177/87 96 Nasal Cannula 2 11/07/16 09:36 92 16 137/67 100 Nasal Cannula 2 11/07/16 09:32 99.6 96 16 137/67 100 CBC & BMP Diagram 11/07/16 10:47 Last Impressions Chest X-Ray 11/07/16 1013 Signed Impressions: Service Date/Time: Monday, November 07, 2016 10:36 - CONCLUSION: 1. No acute cardiopulmonary disease. Cristhian White MD Patient reevaluated, patient with decreased wheezing on evaluation. Plan to discharge patient with diagnoses of bronchitis. Patient understands needs to fill scripts for her antibiotics. She understands importance of smoking cessation. I will add steroids as well as albuterol HFA to her treatment course. Signs and symptoms of when to return to ER was reviewed with patient in detail. Diagnosis Primary Impression: Bronchitis Patient Instructions: General Instructions Additional Instructions: Please take all medications as prescribed to your at [facility] Return to ER as needed or if symptoms worsen or persist Please follow up with your primary care doctor in 24-48 hours Scripts Albuterol 8.5 GM Inh (Proair Hfa 8.5 GM Inh)90 Mcg/Act Aer2 Puff INH Q4-6H PRN ( SHORTNESS OF BREATH) #1 INHALER Ref 0 108 mcg/actuation Prov:Reina Jim DO 11/07/16 Prednisone 20 Mg Tab20 Mg PO BID 5 Days Ref 0 Prov:Reina Jim DO 11/07/16 Disposition: 01 DISCHARGE HOME Condition: Stable Reina Jim DO Nov 07, 2016 12:19
[2016-11-08] MEDS ORDERED: ZITH250T PO (01:26)
[2016-11-08] MEDS ORDERED: BENZ100 PO (01:26)
[2016-11-08] MEDS ORDERED: GUAI200T4 PO (04:05)
== END 2016-11-07 13:07 | disposition home or self-care (01) ==
LOC: NEPE 09:24
DX: J40 Bronchitis, not specified as acute or chronic (principal); J45.909 Unspecified asthma, uncomplicated; E78.00 Pure hypercholesterolemia, unspecified; J44.9 Chronic obstructive pulmonary disease, unspecified; R56.9 Unspecified convulsions; F17.200 Nicotine dependence, unspecified, uncomplicated; Z79.899 Other long term (current) drug therapy
CPT/HCPCS: 71020; 80048; 80185; 85025; 94640; 94664; 96361; 96374; 99285; J2930; J7030

== ENCOUNTER 2016-11-08 01:13 | Emergency (ER) | payer MEDICARE, OTHER ==
[~2016-11-08] VITALS: Ht 144.8 cm; Wt 45.0 kg
[~2016-11-08 01:13] MED LIST changes: +PRED20 PO
[2016-11-08 01:16] VITALS: PULSE 97; RESP 18; TEMP 99.9; O2SAT 95
[2016-11-08 01:20] VITALS: BP 113/59; PULSE 96; RESP 18; TEMP 99.9; O2SAT 95
[2016-11-08] MEDS ORDERED: BENZ100 PO (01:26)
[2016-11-08] MEDS ORDERED: ZITH250T PO (01:26)
[2016-11-08] MEDS ORDERED: methylPREDNISolone SOD SUCC 125 MG/2 ML VIAL IVP ONE (01:45)
[2016-11-08] MEDS ORDERED: SODIUM CHLORIDE 0.9% FLUSH 10 ML FLUSH IVF PRN (01:45)
[2016-11-08] MEDS ORDERED: ACETAMINOPHEN 325 MG TAB PO ONE (01:45)
[2016-11-08] MEDS ORDERED: AZITHROMYCIN 250 MG TAB PO ONE (01:45)
--- NOTE | 2016-11-08 01:48 | PD ---
HPI Chief Complaint: Cold / Flu Symptoms Time Seen by Provider: 01:29 Travel History International Travel<30 days: No Contact w/Intl Traveler<30days: No Traveled to known affect area: No History of Present Illness HPI The patient is a 56 year old female who presents to the [facility] emergency department with a history of reportedly feeling sick since Monday. The patient reports that she's had yellow nasal discharge, cough productive of yellow to green sputum through her tracheostomy, and intermittent shortness of breath with exertion. The patient reports that she's had a fever with a MAXIMUM TEMPERATURE of 101. The patient was seen in the emergency department at [facility] on November 06 and had a chest x-ray done that was unremarkable, however the patient was given a prescription for Z-Todd and Tessalon Perles. The patient did not get her prescriptions filled. She was not feeling any better and on November 07 she was again evaluated in the emergency department at this facility and was seen by Dr. Jim. Laboratory studies were ordered, chest x-ray was ordered at that time. The chest x-ray showed no acute abnormality. The patient was discharged with instructions to fill the prescription for antibiotic and was also given a prescription for a pro-air inhaler and prednisone. The patient again did not fill any of her prescriptions. The patient arrives by ambulance services. The patient reports having acute onset of shortness of breath that awoke her from sound sleep. The patient reports that she normally sleeps with the inner tubing out of her trach. When she awoke she realized that she had a mucous plug in her tracheostomy. On arrival, the patient's tracheostomy is filled with mucus. This was gently suctioned, cleaned by the respiratory therapist. The patient on arrival after being elbowed to cough up some mucus and receiving a nebulizer treatment by ambulance services reports feeling improved. Her only other complaint has been generalized weakness related to her upper respiratory infection. On Review of systems, the patient denies an neck pain chest pain, abdominal pain, vomiting, diarrhea, urinary symptoms, or other focal neurologic symptoms. 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 Hx Anticoagulant Therapy: No Asthma: Yes Blood Disorders: Yes ([facility]. AGE 20) Heart Rhythm Problems: No Cancer: No Cardiovascular Problems: Yes High Cholesterol: Yes Chemotherapy: No Chest Pain: No Congestive Heart Failure: No COPD: Yes Cerebrovascular Accident: No Diabetes: No Endocrine: No Genitourinary: No Immune Disorder: No Musculoskeletal: No Neurologic: Yes (seizures ) Psychiatric: No Reproductive: No Respiratory: Yes (COPD) Radiation Therapy: No Seizures: Yes Sleep Apnea: No Thyroid Disease: No Ovarian Cysts: Yes (RIGHT OVARY) Past Surgical History Appendectomy: Yes (AGE 7) Hysterectomy: Yes Other Surgery: Yes (TRACH AGE 20, RT BREAST AGE 29.VULVA DISPLASIA 05/10/07) Social History Alcohol Use: Yes (OCCASIONALLY) Tobacco Use: Yes (/ ppd) Substance Use: Yes (MARIJUANA) Allergies-Medications (Allergen,Severity, Reaction): Coded Allergies: Cat Dander (Verified Allergy, Mild, 11/07/16) Dog Dander (Verified Allergy, Mild, 11/07/16) Dust (Verified Allergy, Mild, 11/07/16) Brandon Grass (Verified Allergy, Mild, 11/07/16) Molds and Smuts (Verified Allergy, Mild, 11/07/16) Uncoded Allergies: paper tape (Allergy, Mild, Rash, 02/20/14) Reported Meds & Prescriptions Reported Meds & Active Scripts Active Guaifenesin 200 Mg Tablet 1 Tab PO Q 6HOURS PRN 3 Days Proair Hfa 8.5 GM Inh (Albuterol Sulfate) 90 Mcg/Act Aer 2 Puff INH Q4-6H PRN 108 mcg/actuation Prednisone 20 Mg Tab 20 Mg PO BID 5 Days [tracheostomy care] Kit .XX CONTINUOUS Dilantin (Phenytoin Extended) 100 Mg Cap 100 Mg PO BID Ibuprofen 600 Mg Tab 600 Mg PO Q8HR PRN Proair Hfa 8.5 GM Inh (Albuterol Sulfate) 90 Mcg/Act Aer 2 Puff INH Q4-6H PRN 108 mcg/actuation Reported Tessalon Perles (Benzonatate) 100 Mg Cap 100 Mg PO TID PRN Zithromax (Azithromycin) 250 Mg Tab 250 Mg PO DIRECTED Take 2 tabs (500 mg) on day 1 then 1 tab daily x 4 days. Review of Systems Except as stated in HPI: all other systems reviewed are Neg General / Constitutional: Positive: Fever Eyes: No: Visual changes HENT: No: Headaches Cardiovascular: No: Chest Pain or Discomfort Respiratory: Positive: Cough, Shortness of Breath Gastrointestinal: No: Abdominal Pain Genitourinary: No: Dysuria Musculoskeletal: No: Pain Skin: No Rash Neurologic: Positive: Weakness, No: Focal Abnormalities, Change in Mentation, Slurred Speech, Sensory Disturbance Psychiatric: No: Depression Endocrine: No: Polydipsia Hematologic/Lymphatic: No: Easy Bruising Physical Exam Narrative General: The patient is a well-developed, thin appearing female, in no acute distress. Head and Neck exam: Head is normocephalic atraumatic. Eyes: EOMI, pupils are equal round and reactive to light. Nose: Midline septum with pink mucous membranes Mouth: Dentition unremarkable. Moist mucus membranes. Posterior oropharynx is not erythematous. No tonsillar hypertrophy. Uvula midline. Airway patent. Neck: No palpable lymphadenopathy. No nuchal rigidity. No thyromegaly. The patient has a tracheostomy in place with yellow drainage, mucus noted around it. Cardiovascular: Regular rate and rhythm without murmurs, gallops, or rubs. Lungs: Soft expiratory wheezes are audible in bilateral lung gill, no rhonchi, no crackles. The patient has a frequent cough on examination. No tripoding. No paroxysmal abdominal breathing. No accessory muscle use. Abdomen: Soft, without tenderness to palpation in all 4 quadrants of the abdomen. No guarding, rebound, or rigidity. Normal bowel sounds are audible. No tenderness on palpation of McBurney's point. Extremities: No clubbing, cyanosis, or edema. 2+ pulses in all 4 extremities. No calf tenderness on palpation. Back: No spinous process tenderness to palpation. No costovertebral angle tenderness to palpation. Neurologic Exam: Grossly nonfocal. Skin Exam: No rash noted. Intact skin that is warm and dry. Data Data Last Documented VS Vital Signs Date Time Temp Pulse Resp B/P Pulse Ox O2 Delivery O2 Flow Rate FiO2 11/08/16 04:25 98 Nasal Cannula 2 11/08/16 01:20 97 18 11/08/16 01:20 99.9 113/59 Orders Azithromycin (Zithromax) (11/08/16 01:45) Acetaminophen (Tylenol) (11/08/16 01:45) Oral Rehydration (11/08/16 01:32) Resp Respiratory Parameters (11/08/16 ) Iv Access Insert/Monitor (11/08/16 01:32) Ecg Monitoring (11/08/16 01:32) Oximetry (11/08/16 01:32) Oxygen Administration (11/08/16 01:32) Sodium Chloride 0.9% Flush (Ns Flush) (11/08/16 01:45) Methylprednisolone So Succ Inj (Solumedr (11/08/16 01:45) Albuterol-Ipratropium Neb (Duoneb Neb) (11/08/16 01:45) MDM Medical Decision Making Medical Screen Exam Complete: Yes Emergency Medical Condition: Yes Medical Record Reviewed: Yes Interpretation(s) Vital Signs Date Time Temp Pulse Resp B/P Pulse Ox O2 Delivery O2 Flow Rate FiO2 11/08/16 04:25 98 Nasal Cannula 2 11/08/16 04:25 94 Room Air 11/08/16 01:20 97 18 96 Nasal Cannula 2 11/08/16 01:20 99.9 96 18 113/59 95 Room Air 11/08/16 01:16 99.9 97 18 95 Differential Diagnosis COPD exacerbation, versus bronchitis, versus mucus plugging Narrative Course During the course of the patients emergency department visit, the patients history, examination, and differential diagnosis were reviewed with the patient. The patient had IV access obtained and blood work sent for analysis. The patient's electronic medical record was reviewed. As the patient had laboratory studies and a chest x-ray done within the last 24 hours, this was not repeated at this time. The patient was initially provided DuoNeb 2, Solu-Medrol 60 mg IV. Respiratory therapy was available at the bedside to assist with the patient's care. The patient had her tracheostomy cleaned by respiratory therapy and suctioned. The patient was given Zithromax 500 by mouth. The patient was discharged home with instructions regarding taking guaifenesin for increased mucus production. The patient is resting comfortably and feels better, is alert and in no distress. The patients results and examination findings were discussed with the patient. The repeat examination is unremarkable and benign. The history, exam, diagnostic testing, and current condition do not suggest any significant pathology to warrant further testing, continued ED treatment, admission, or surgical evaluation at this point. The vital signs have been stable. The patient does not have uncontrollable pain, intractable vomiting, or other significant symptoms. The patient's condition is stable and appropriate for discharge. The patient will pursue further outpatient evaluation with a primary care physician or other designated or consulting physician as indicated in the discharge instructions. The patient expressed understanding and was agreeable with this plan. Diagnosis Primary Impression: Bronchitis Additional Impressions: COPD exacerbation Mucus plugging of bronchi Referrals: Primary Care Physician 2 days Patient Instructions: Acute Bronchitis (ED), COPD (Chronic Obstructive Pulmonary Disease) (ED), General Instructions Additional Instructions: The patient is instructed to fill the prescription for Zithromax, prednisone, pro-air, and Tessalon Perles that were previously prescribed. Med/Other Pt SpecificInfo: Prescription(s) given Scripts Guaifenesin 200 Mg Tablet1 Tab PO q 6hours PRN (cough) 3 Days Prov:Cheyenne Pickard MD 11/08/16 Disposition: 01 DISCHARGE HOME Condition: Stable Cheyenne Pickard MD Nov 08, 2016 01:48
[2016-11-08] MEDS: RESP: ALBUTEROL 2.5 MG/IPRATROPIUM 0.5 MG NEB (SCH) INH ×2 (02:43→02:44)
[2016-11-08] MEDS ORDERED: GUAI200T4 PO (04:05)
[2016-11-08 04:25] VITALS: O2SAT 94
== END 2016-11-08 04:45 | disposition home or self-care (01) ==
LOC: NEPE 01:13
DX: J44.1 Chronic obstructive pulmonary disease with (acute) exacerbation (principal); T85.698A Other mechanical complication of other specified internal prosthetic devices, implants and grafts, initial encounter; Z91.19 Patient's noncompliance with other medical treatment and regimen; J45.909 Unspecified asthma, uncomplicated; E78.00 Pure hypercholesterolemia, unspecified; F17.210 Nicotine dependence, cigarettes, uncomplicated; Z79.899 Other long term (current) drug therapy
CPT/HCPCS: 94640; 94664; 96374; 99284; J2930

== ENCOUNTER 2016-12-05 09:57 | Emergency (ER) | payer MEDICARE, MEDICAID ==
[~2016-12-05] VITALS: Ht 142.2 cm; Wt 41.0 kg
[~2016-12-05 09:57] MED LIST changes: +BENZ100 PO; +GUAI200T4 PO; +ZITH250T PO
[2016-12-05 09:59] VITALS: BP 192/86; PULSE 64; RESP 20; TEMP 98.4; O2SAT 98
--- NOTE | 2016-12-05 10:51 | PD ---
HPI . Right thumb swelling Chief Complaint: Skin Problem Time Seen by Provider: 10:17 Travel History International Travel<30 days: No Contact w/Intl Traveler<30days: No Traveled to known affect area: No History of Present Illness HPI This patient presents with 2 chief complaints. Her first is pain and swelling of the right thumb. Onset was 11/19. She states that her entire right hand was swollen and red. She reports that she was incarcerated and was treated with 2 antibiotics while in intermediate from when she was released from intermediate. She reports marked improvement in her symptoms. She denies any fever. She denies any injury. Pain is exacerbated by movement. Symptoms have been relieved by the unknown antibiotics. Pain scale using the revised FLACC scale is 0. In addition, the patient is complaining with loss of her inner cannula of her tracheostomy. She states that she inadvertently lost it over the weekend. She reports no respiratory distress. She would just like to have the inner cannula replaced while she is here. PFSH Past Medical History Hx Anticoagulant Therapy: No Asthma: Yes Blood Disorders: Yes ([facility]. AGE 20) Heart Rhythm Problems: No Cancer: No Cardiovascular Problems: Yes High Cholesterol: Yes Chemotherapy: No Chest Pain: No Congestive Heart Failure: No COPD: Yes Cerebrovascular Accident: No Diabetes: No Endocrine: No Genitourinary: No Immune Disorder: No Musculoskeletal: No Neurologic: Yes (seizures ) Psychiatric: No Reproductive: No Respiratory: Yes (TRACH) Radiation Therapy: No Seizures: Yes Sleep Apnea: No Thyroid Disease: No Ovarian Cysts: Yes (RIGHT OVARY) Past Surgical History Appendectomy: Yes (AGE 7) Hysterectomy: Yes Other Surgery: Yes (TRACH AGE 20, RT BREAST AGE 29.VULVA DISPLASIA 05/10/07) Social History Alcohol Use: Yes (OCCASIONALLY) Tobacco Use: Yes (3/4 ppd) Substance Use: Yes (MARIJUANA) Allergies-Medications (Allergen,Severity, Reaction): Coded Allergies: Cat Dander (Verified Allergy, Mild, 12/05/16) Dog Dander (Verified Allergy, Mild, 12/05/16) Dust (Verified Allergy, Mild, 12/05/16) Brandon Grass (Verified Allergy, Mild, 12/05/16) Molds and Smuts (Verified Allergy, Mild, 12/05/16) Uncoded Allergies: paper tape (Allergy, Mild, Rash, 02/20/14) Reported Meds & Prescriptions Reported Meds & Active Scripts Active Guaifenesin 200 Mg Tablet 1 Tab PO Q 6HOURS PRN 3 Days Proair Hfa 8.5 GM Inh (Albuterol Sulfate) 90 Mcg/Act Aer 2 Puff INH Q4-6H PRN 108 mcg/actuation Prednisone 20 Mg Tab 20 Mg PO BID 5 Days [tracheostomy care] Kit .XX CONTINUOUS Dilantin (Phenytoin Extended) 100 Mg Cap 100 Mg PO BID Ibuprofen 600 Mg Tab 600 Mg PO Q8HR PRN Proair Hfa 8.5 GM Inh (Albuterol Sulfate) 90 Mcg/Act Aer 2 Puff INH Q4-6H PRN 108 mcg/actuation Reported Tessalon Perles (Benzonatate) 100 Mg Cap 100 Mg PO TID PRN Zithromax (Azithromycin) 250 Mg Tab 250 Mg PO DIRECTED Take 2 tabs (500 mg) on day 1 then 1 tab daily x 4 days. Review of Systems Except as stated in HPI: all other systems reviewed are Neg General / Constitutional: No: Fever, Chills Musculoskeletal: Positive: Edema Skin: Positive Change in Pigmentation Physical Exam Narrative GENERAL: Awake and alert and in no acute distress. SKIN: Warm and dry. She has some redness and swelling of the right thumb. No fluctuance. HEAD: Atraumatic. Normocephalic. NECK: Tracheostomy in place. There is no drainage from the tracheostomy. There is no redness or swelling of the stoma. EYES: Pupils equal and round. Extraocular movements are intact. CARDIOVASCULAR: Regular rate and rhythm. RESPIRATORY: No accessory muscle use. MUSCULOSKELETAL: No obvious deformities. No edema. Full range of motion of the right fall without any apparent pain. NEUROLOGICAL: Awake and alert. No obvious cranial nerve deficits. Motor grossly within normal limits. Normal speech. PSYCHIATRIC: Appropriate mood and affect; insight and judgment normal. Data Data Last Documented VS Vital Signs Date Time Temp Pulse Resp B/P Pulse Ox O2 Delivery O2 Flow Rate FiO2 12/05/16 09:59 98.4 64 20 192/86 98 Room Air Orders Complete Blood Count With Diff (12/05/16 10:32) Finger ([id number]) (12/05/16 10:32) Resp Request For Service (12/05/16 ) Ibuprofen (Motrin) (12/05/16 11:30) Labs Laboratory Tests Test 12/05/16 11:14 White Blood Count 5.3 TH/MM3 Red Blood Count 3.90 MIL/MM3 Hemoglobin 12.4 GM/DL Hematocrit 36.2 % Mean Corpuscular Volume 92.7 FL Mean Corpuscular Hemoglobin 31.7 PG Mean Corpuscular Hemoglobin 34.2 % Concent Red Cell Distribution Width 14.0 % Platelet Count 256 TH/MM3 Mean Platelet Volume 7.0 FL Neutrophils (%) (Auto) 65.8 % Lymphocytes (%) (Auto) 26.3 % Monocytes (%) (Auto) 6.7 % Eosinophils (%) (Auto) 0.0 % Basophils (%) (Auto) 1.2 % Neutrophils # (Auto) 3.5 TH/MM3 Lymphocytes # (Auto) 1.4 TH/MM3 Monocytes # (Auto) 0.4 TH/MM3 Eosinophils # (Auto) 0.0 TH/MM3 Basophils # (Auto) 0.1 TH/MM3 CBC Comment DIFF FINAL Differential Comment MDM Medical Decision Making Medical Screen Exam Complete: Yes Emergency Medical Condition: Yes Differential Diagnosis My differential diagnosis includes but is not limited to localized wound infection, cellulitis, abscess Narrative Course This patient presents with redness and swelling of her right thumb. The patient was treated while incarcerated in intermediate to unknown antibiotics from 11/21 11/28. Symptoms are markedly improved but not yet resolved following this treatment. I have ordered a CBC and an x-ray. In addition, the patient is complaining with loss of her inner cannula of her tracheostomy. Respiratory therapy has been consult. The therapist does not believe that we have her size tracheostomy in stock but she will look. CBC Diagram 12/05/16 11:14 R thumb X-ray: 1. No acute fracture, dislocation or erosive changes. 2. Mild diffuse soft tissue swelling of the right thumb. 3. Mild degenerative changes first carpometacarpal joint. This patient has no evidence of systemic infection and no evidence of osteomyelitis. She will be discharged home. I do not know which antibiotic she was treated with in intermediate. I will treat her with Cleocin. Diagnosis Primary Impression: Cellulitis of thumb, right Additional Impression: Tracheostomy dependence Patient Instructions: Cellulitis (DC), General Instructions Med/Other Pt SpecificInfo: Prescription(s) given Scripts Clindamycin (Cleocin)300 Mg [id number] Mg PO Q8H 10 Days Ref 0 Prov:Elza Lewis MD 12/05/16 Disposition: 01 DISCHARGE HOME Condition: Stable Elza Lewis MD Dec 05, 2016 10:51
--- NOTE | 2016-12-05 11:22 | RADRPT ---
EXAM DATE/TIME: 12/05/2016 11:00 [place] COMPARISON: No previous studies available for comparison. INDICATIONS : Right thumb inflammation. No known injury. MEDICAL HISTORY : Chronic obstructive pulmonary disease. Hypercholesterolemia. SURGICAL HISTORY : Tracheostomy. ENCOUNTER: Initial ACUITY: 2 weeks PAIN SCORE: 4/10 LOCATION: Right thumb FINDINGS: There is no acute fracture or dislocation. 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 No erosive changes are noted. Mild soft tissue swelling is noted. CONCLUSION: 1. No acute fracture, dislocation or erosive changes. 2. Mild diffuse soft tissue swelling of the right thumb. 3. Mild degenerative changes first carpometacarpal joint. Hussein Ferrara MD on December 05, 2016 at 11:13 Board Certified Radiologist. This report was verified electronically.
[2016-12-05] MEDS ORDERED: IBUPROFEN 800 MG TAB PO ONE (11:30)
[2016-12-05 11:32] LABS: AUTOMATED NEUTROPHIL # 3.5 TH/MM3 (1.8-7.7); BASOPHIL # 0.1 TH/MM3 (0-0.2); BASOPHIL % 1.2 % (0.0-2.0); HEMATOCRIT 36.2 % (35.0-46.0); HEMO FLAGS DIFF FINAL; LYMPH % 26.3 % (9.0-44.0); LYMPHOCYTE # 1.4 TH/MM3 (1.0-4.8); MEAN CELL VOLUME 92.7 FL (80.0-100.0); MEAN CORPUSCULAR HEMOGLOBIN 31.7 PG (27.0-34.0); MEAN CORPUSCULAR HGB CONC 34.2 % (32.0-36.0); MONO % 6.7 % (0.0-8.0); NEUT % 65.8 % (16.0-70.0); PLATELET COUNT 256 TH/MM3 (150-450); WHITE BLOOD COUNT 5.3 TH/MM3 (4.0-11.0)
[2016-12-05] MEDS ORDERED: CLEO300C2 PO (11:48)
[2016-12-05 11:57] VITALS: BP 173/96
== END 2016-12-05 12:05 | disposition home or self-care (01) ==
LOC: NEPD 09:57
DX: L03.011 Cellulitis of right finger (principal); J45.909 Unspecified asthma, uncomplicated; E78.00 Pure hypercholesterolemia, unspecified; J44.9 Chronic obstructive pulmonary disease, unspecified; R56.9 Unspecified convulsions; F17.200 Nicotine dependence, unspecified, uncomplicated; Z79.899 Other long term (current) drug therapy
CPT/HCPCS: 73140; 85025; 99284